=== PATIENT | male | born 1985 | race Caucasian/White ===

== ENCOUNTER 2021-08-11 10:58 | Emergency (ER) | payer OTHER | END 2021-08-11 13:15 | disposition home or self-care (01) | LOC: FER 10:58 | DX: R55 Syncope and collapse (principal); S00.81XA Abrasion of other part of head, initial encounter; I10 Essential (primary) hypertension; Z28.310 Unvaccinated for COVID-19; Z79.899 Other long term (current) drug therapy; W19.XXXA Unspecified fall, initial encounter | CPT/HCPCS: 99284 ==

== ENCOUNTER 2021-11-17 19:10 | Emergency (ER) | payer OTHER | END 2021-11-17 21:43 | disposition home or self-care (01) | LOC: FER 19:10 | DX: M25.571 Pain in right ankle and joints of right foot (principal); R22.41 Localized swelling, mass and lump, right lower limb; F17.290 Nicotine dependence, other tobacco product, uncomplicated; Z28.310 Unvaccinated for COVID-19 | CPT/HCPCS: 73610 ==